=== PATIENT | male | born 2005 | race Caucasian/White ===

== ENCOUNTER → 2024-11-24 | Outpatient (CLI) | payer OTHER ==
--- NOTE | 2024-11-24 10:32 | US ---
EXAMINATION TYPE: US thyroid st tissue head/neck DATE OF EXAM: 11/24/2024 COMPARISON: NONE CLINICAL INDICATION: Male, 19 years old with history of R79.89 Elevated TSH; abn thyroid labs, no sym ptoms per patient TECHNIQUE: Grayscale and color Doppler imaging of the thyroid gland. FINDINGS: GLAND SIZE: Right Lobe: 4.6 x 1.9 x 2.1 cm Overall Parenchyma: heterogeneous Left Lobe: 4.6 x 1.7 x 1.7 cm Overall Parenchyma: heterogeneous Isthmus Thickness: 0.8 cm NODULES RIGHT: # of nodules measured on right: 0 LEFT: # of nodules measured on left: 0 ISTHMUS: # of nodules measured in the isthmus: 0 Bilateral neck scanned, no evidence of lymphadenopathy. IMPRESSION: Borderline thyromegaly with markedly heterogeneous parenchyma throughout. Consider goiter or diffuse thyroiditis. [facility], Workstation: [facility], 11/24/2024 10:30 AM
== END | disposition home or self-care (01) ==
LOC: RADUSWWP 09:54
PROVIDERS: ATTEND Family Medicine
DX: R79.89 Other specified abnormal findings of blood chemistry (principal); E01.0 Iodine-deficiency related diffuse (endemic) goiter
CPT/HCPCS: 76536; 84432; 86376